=== PATIENT | male | born 1965 | race American Indian/Alaskan Native ===

== ENCOUNTER 2017-03-30 04:45 | Emergency (ER) | payer MEDICAID ==
[2017-03-30 04:54] VITALS: BP 135/90; PULSE 52; RESP 14; TEMP 98; O2SAT 97
--- NOTE | 2017-03-30 05:02 | C.PDOC ---
History Of Present Illness 52 yo male come in for evaluation of left hip pain gradually developed since last night " after was wearing low sitting jeans with belt that was around my hip. I was sitting in chair, had long discussion and at the end felt some deep pain over my Left hip that gradually worse over time". Otherwise, pt denies known direct trauma or injury, back pain, abd. pain, N/V, saddle anesthesia, incontinence, denies weakness, sensory or vascular deficits to Left leg. Ambulate to ED for evaluation with stable gait, not in any apparent distress. Time Seen by Provider: 03/30/17 04:54 History Per: Patient Onset/Duration Of Symptoms: Gradual Past Medical History Reviewed: Historical Data, Nursing Documentation, Vital Signs Vital Signs: Last Vital Signs Temp 98.0 F 03/30/17 04:54 Pulse 52 L 03/30/17 04:54 Resp 14 03/30/17 04:54 BP 135/90 03/30/17 04:54 Pulse Ox 97 03/30/17 05:07 Family History: States: No Known Family Hx - Social History Hx Tobacco Use: No Hx Alcohol Use: No Hx Substance Use: No - Immunization History Hx Tetanus Toxoid Vaccination: No Hx Influenza Vaccination: No Hx Pneumococcal Vaccination: No Review Of Systems Except As Marked, All Systems Reviewed And Found Negative. Constitutional: Negative for: Fever, Chills ENT: Negative for: Throat Pain Gastrointestinal: Negative for: Nausea, Vomiting, Abdominal Pain Genitourinary: Negative for: Incontinence Musculoskeletal: Positive for: Other (Left hip pain) Skin: Negative for: Rash, Bruising Neurological: Negative for: Weakness, Numbness Physical Exam - Physical Exam Appears: Well, Non-toxic, No Acute Distress Skin: Normal Color, Warm, No Ecchymosis Gastrointestinal/Abdominal: Soft, No Tenderness, No Distention, No Guarding Back: No CVA Tenderness, No Vertebral Tenderness Extremity: Normal ROM (LLE), Tenderness (mild tenderness overlying Left hip area , no ecchymoses, no palpable deformity, no edema or erythema. FAROM of Left hip , no neurovascular deficist distally to pain.), No Pedal Edema, Capillary Refill (less than 2sec to Left hip), No Deformity, No Swelling Neurological/Psych: Oriented x3, Normal Speech, Normal Motor, Normal Sensation, Normal Reflexes ED Course And Treatment O2 Sat by Pulse Oximetry: 97 - Other Rad Left hip and pelvis X-Ray: Interpreted by Me, Viewed By Me Interpretation: no acute fx or dislocation Progress Note: On re-eval, pt ambulatory in ED with stable gait, not in any apparent distress. Afebrile, hemodynamicaly stable. NOn-toxic. PulseOx 100% RA. ENT: no acute findings. Uvula midline. Abd: benign, (-) guarding, (-) rebound. LLE: exam c/w left hip contusion. No defomrity, no skin changes. FAROM , no neurovascular deficits. xray review and appears normal. Pt advised on course of ds. ref. to f/U with Ortho in 2-3 days for re-eavl. return if any new changes. Disposition Counseled Patient/Family Regarding: Studies Performed, Diagnosis, Need For Followup, Rx Given - Disposition Referrals: Jeyson Nguyen III, MD [Staff Provider] - Disposition: HOME/ ROUTINE Disposition Time: 06:07 Condition: STABLE Additional Instructions: Ice to area Avoid prolong walking Keep leg elevated Avoid low rise jeans Take medication as prescribed Follow up ith Orthopedist in 2 days for [id number]. Return to ED at any time if any worsening or new changes. Prescriptions: Ibuprofen [Motrin Tab] 600 mg PO Q6 #14 tab Instructions: Hip Bursitis (ED), Hip Pain (ED) - Clinical Impression Clinical Impression: Hip pain
--- NOTE | 2017-03-30 08:05 | RAD ---
PROCEDURE: HISTORY: pain COMPARISON: None TECHNIQUE: AP view of the pelvis and applicable frog leg views obtained. FINDINGS: No fracture or subluxation appreciated the right femoral head/neck morphology the decreased superolateral can cavity is dysmorphic - a femoral acetabular impingement/ adult type hip dysplasia with greater than normal uncovering of the right femoral head is suspect. Note is made patient's symptoms are left-sided. Bilateral superolateral hip joint space narrowing is present. Left superolateral femoral head neck osseous hypertrophy with bordering subchondral coalescence cystic change in geodes probable Right hemipelvic and perineal phleboliths are suggested Possible L5-S1 minimal facet osseous hypertrophy also present IMPRESSION: No fracture. Asymmetry in the hips as detailed above. Bilateral superolateral hip joint space narrowing consistent degenerative changes present. Left femoral head probable subchondral cysts and/or the oats. To further evaluate the marrow are consider MRI. Dysplastic appearing right hip
== END 2017-03-30 06:18 | disposition home or self-care (01) ==
LOC: C.ER 04:45
DX: M25.552 Pain in left hip (principal)

== ENCOUNTER 2017-07-11 06:12 | Emergency (ER) | payer SELFPAY ==
[2017-07-11 06:31] VITALS: RESP 16; O2SAT 98
--- NOTE | 2017-07-11 08:57 | C.PDOC ---
History Of Present Illness 52 yo male requesting Glenn testing. PT notes that his friend is positive and is concerned he has it. States he feels "great". no sore throat, fever, weakness, weight loss, lymphadenopathy. Pt notes he is asymptomatic. (Paz Mosley) History Per: Patient History/Exam Limitations: no limitations Time Seen by Provider: 07/11/17 07:18 Chief Complaint (Nursing): Medical Clearance Past Medical History Family History: States: Unknown Family Hx - Social History Hx Tobacco Use: No Hx Alcohol Use: No Hx Substance Use: No - Immunization History Hx Tetanus Toxoid Vaccination: No Hx Influenza Vaccination: No Hx Pneumococcal Vaccination: No Vital Signs: Last Vital Signs Temp 97.5 F L 07/11/17 08:57 Pulse 61 07/11/17 08:57 Resp 16 07/11/17 08:57 BP 130/77 07/11/17 08:57 Pulse Ox 98 07/11/17 08:58 Physical Exam - Physical Exam Appears: Well, Non-toxic, No Acute Distress Skin: Normal Color, Warm, Dry Head: Atraumatic, Normacephalic Eye(s): bilateral: Normal Inspection, EOMI Nose: Normal Oral Mucosa: Moist Throat: Normal, No Erythema, No Exudate, No Drooling Neck: Normal, Normal ROM, Supple Lymphatic: Normal Exam, No Axilla Node Tenderness Chest: Symmetrical Cardiovascular: Rhythm Regular Respiratory: Normal Breath Sounds Gastrointestinal/Abdominal: Normal Exam, Soft, No Tenderness Back: Normal Inspection Extremity: Normal ROM Neurological/Psych: Oriented x3, Normal Speech ED Course And Treatment O2 Sat by Pulse Oximetry: 98 Progress Note: Glenn spot negative. Disposition - Disposition Disposition Time: 08:57 - Disposition Disposition: HOME/ ROUTINE Condition: STABLE Additional Instructions: Follow up with your primary medical doctor or clinic in 2-5 days for further evaluation. Return to the emergency department at any time if symptoms persist or worsen. Forms: General Discharge Instructions, [facility] (Citizen Of [place]) - Clinical Impression Clinical Impression: Encounter for medical assessment
[2017-07-11 08:58] VITALS: BP 130/77; PULSE 61; TEMP 97.5
== END 2017-07-11 08:58 | disposition home or self-care (01) ==
LOC: C.ER 06:12
DX: Z04.8 Encounter for examination and observation for other specified reasons (principal)

== ENCOUNTER 2018-01-15 12:02 | Emergency (ER) | payer MEDICAID ==
[2018-01-15 12:11] VITALS: BMI 27.8
[2018-01-15 12:16] VITALS: BP 143/80; PULSE 56; RESP 18; TEMP 98.1; O2SAT 99
--- NOTE | 2018-01-15 13:04 | C.PDOC ---
History Of Present Illness 52 yo male w/o significant PMHx come in for evaluation of left sided lower back/ left flank pain gradually developed for past few days. Pt reports, " was playing basketball when jumped for ball and twisted by back. I felt pain right away but it subsided. Since yesterday, pain worsen". Pt admits, pain is localized over left lower back pain, non-radiating and worse with movement. Otherwise, pt denies known direct trauma or injury, fall, neck pain, abd. pain, V/D, UTI sx, saddle anesthesia, incontinence, denies weakness, sensory or vascular deficits to B/l LEs. Ambulate to ED for evaluation with stable gait. Time Seen by Provider: 01/15/18 12:17 Chief Complaint (Nursing): Back Pain History Per: Patient Onset/Duration Of Symptoms: Gradual Past Medical History Reviewed: Historical Data, Nursing Documentation, Vital Signs Vital Signs: Last Vital Signs Temp 98.1 F 01/15/18 12:14 Pulse 56 L 01/15/18 12:14 Resp 18 01/15/18 12:14 BP 143/80 01/15/18 12:14 Pulse Ox 99 01/15/18 12:14 - Medical History PMH: No Chronic Diseases Surgical History: No Surg Hx Family History: States: Unknown Family Hx - Social History Hx Tobacco Use: No Hx Alcohol Use: No Hx Substance Use: No - Immunization History Hx Tetanus Toxoid Vaccination: No Hx Influenza Vaccination: No Hx Pneumococcal Vaccination: No Review Of Systems Except As Marked, All Systems Reviewed And Found Negative. Constitutional: Negative for: Fever, Chills ENT: Negative for: Throat Pain Cardiovascular: Negative for: Chest Pain Respiratory: Negative for: Cough Gastrointestinal: Negative for: Nausea, Vomiting, Abdominal Pain, Diarrhea Genitourinary: Negative for: Dysuria, Frequency, Incontinence Musculoskeletal: Positive for: Back Pain. Negative for: Leg Pain Skin: Negative for: Rash Neurological: Negative for: Weakness, Numbness Physical Exam - Physical Exam Appears: Well, Non-toxic, No Acute Distress Skin: Normal Color, Warm, Dry, No Rash, No Ecchymosis Head: Normacephalic Eye(s): bilateral: PERRL Oral Mucosa: Moist Neck: No Midline Cervical Tenderness, No Step Off Deformity, Supple Gastrointestinal/Abdominal: Soft, No Tenderness, No Distention, No Guarding, No Rebound Back: No CVA Tenderness, No Vertebral Tenderness, Muscle Spasm (Left lumbar paraspinal), Paraspinal Tenderness (left sided lumbar paraspinal tenderness with mod muscle spasm. no midline tenderness, no palpable deformity, no skin changes.), Straight Leg Raising (Right leg (+)60, Left leg (+) 40) Extremity: Normal ROM (B/L LEs), No Pedal Edema, No Calf Tenderness, No Deformity, No Swelling Neurological/Psych: Oriented x3, Normal Speech, Normal Motor, Normal Sensation, Normal Reflexes ED Course And Treatment O2 Sat by Pulse Oximetry: 99 Pulse Ox Interpretation: Normal Progress Note: On re-eval, pt is not in any apparent distress. Afebrile, hemodynamicaly stable. Non-toxic, ambulatory in Ed with stable gait. neck: Supple, (-) midline tenderness. Abd: benign, (-) guardibng, (-) rebound. back : (+) exam c/w left lumbar paraspinal tenderness with muscle spasm, no midline tenderness, no palpable deformity. Neurologicaly intact. Pt advised. ref. to f/u with PMD in 1-2 days for re-eval. return if any new changes. Disposition Counseled Patient/Family Regarding: Diagnosis, Need For Followup, Rx Given - Disposition Referrals: Cristóbal Rodas DO [Staff Provider] - Disposition: HOME/ ROUTINE Disposition Time: 12:40 Condition: STABLE Additional Instructions: Light duty to lower back, avoid any physical activity for 1 week Take medication as prescribed [id number] up with PMD in 2-3 days for re-evaluation. Return to ED if any worsening or new changes. Prescriptions: Ibuprofen [Motrin Tab] 600 mg PO Q6 #14 tab Methocarbamol [Robaxin] 500 mg PO TID #14 tab traMADol [Ultram] 50 mg PO TID #7 tab Instructions: Lumbar Muscle Strain (DC) Forms: [facility] (Thai), Work Excuse - Clinical Impression Clinical Impression: Low back strain
== END 2018-01-15 13:25 | disposition home or self-care (01) ==
LOC: C.ER 12:02
DX: S39.012A Strain of muscle, fascia and tendon of lower back, initial encounter (principal); X50.9XXA Other and unspecified overexertion or strenuous movements or postures, initial encounter; Y93.67 Activity, basketball

== ENCOUNTER 2018-09-24 15:41 | Emergency (ER) | payer SELFPAY ==
[2018-09-24 15:41] VITALS: BMI 27.8
[2018-09-24 15:54] VITALS: BP 130/73; PULSE 55; RESP 18; TEMP 98; O2SAT 98
[2018-09-24] MEDS ORDERED: Lidocaine 5% Patch TD STA (16:14)
[2018-09-24] MEDS ORDERED: Lidocaine 5% Patch TD ONE (16:29)
--- NOTE | 2018-09-24 16:36 | C.PDOC ---
History Of Present Illness 53 y/o male presents to the ER complaining of right sided neck pain which has been present since yesterday. Patient states that the pain began after he abruptly turned his head. Patient reports that pain became worse when he woke up in the morning today.He notes that he has history of similar symptoms. Denies having headache, fever, and chills. Time Seen by Provider: 09/24/18 15:48 Chief Complaint (Nursing): Back Pain History Per: Patient History/Exam Limitations: no limitations Onset/Duration Of Symptoms: Days Current Symptoms Are (Timing): Still Present Severity: Moderate Past Medical History Reviewed: Historical Data, Nursing Documentation, Vital Signs Vital Signs: Last Vital Signs Temp 98.0 F 09/24/18 15:51 Pulse 55 L 09/24/18 15:51 Resp 18 09/24/18 15:51 BP 130/73 09/24/18 15:51 Pulse Ox 98 09/24/18 15:51 - Medical History PMH: No Chronic Diseases Other Surgeries: Hx of surgeries Family History: States: No Known Family Hx - Social History Hx Tobacco Use: No Hx Alcohol Use: No Hx Substance Use: Yes - Immunization History Hx Tetanus Toxoid Vaccination: No Hx Influenza Vaccination: No Hx Pneumococcal Vaccination: No Review Of Systems Except As Marked, All Systems Reviewed And Found Negative. Constitutional: Negative for: Fever, Chills Musculoskeletal: Positive for: Neck Pain Neurological: Negative for: Headache Physical Exam - Physical Exam Appears: Non-toxic, No Acute Distress Skin: Normal Color, Warm, Dry Head: Atraumatic, Normacephalic Eye(s): bilateral: Normal Inspection Nose: Normal Oral Mucosa: Moist Neck: No Midline Cervical Tenderness, Supple, Other (mild muscle spasm to right lateral neck) Chest: Symmetrical Cardiovascular: Rhythm Regular Respiratory: Normal Breath Sounds, No Rales, No Rhonchi, No Wheezing Extremity: Normal ROM Neurological/Psych: Oriented x3, Normal Speech, Normal Motor, Normal Sensation, Normal Reflexes ED Course And Treatment O2 Sat by Pulse Oximetry: 98 (RA) Pulse Ox Interpretation: Normal Progress Note: Pt was offered Toradol IM, Valium PO, and Lidoderm Patch. As per pt's request, pt was only treated with Lidoderm Patch and Tramadol. Pt has been discharged and instructed to follow up with PMD in 2-3 days. Disposition - Disposition Referrals: Cristóbal Rodas DO [Staff Provider] - Disposition: HOME/ ROUTINE Disposition Time: 16:33 Condition: STABLE Additional Instructions: Follow up with PMD within 2-3 days. Return to ED if feel worse. Prescriptions: Lidocaine 5% [Lidoderm] 1 patch TP DAILY #30 patch Ibuprofen [Motrin Tab] 600 mg PO Q8 #30 tab traMADol [Ultram] 50 mg PO Q6 #20 tab Instructions: Muscle Spasms (DC) Forms: [employer] (Chinese) - Clinical Impression Clinical Impression: Neck muscle spasm - PA / MOBILITY SPECIALIST / Resident Statement / has reviewed & agrees with the documentation as recorded. - Scribe Statement The provider has reviewed the documentation as recorded by the Melina Arriaga Provider Attestation All medical record entries made by the Piaibalec were at my direction and personally dictated by me. I have reviewed the chart and agree that the record accurately reflects my personal performance of the history, physical exam, medical decision making, and the department course for this patient. I have also personally directed, reviewed, and agree with the discharge instructions and disposition.
== END 2018-09-24 16:43 | disposition home or self-care (01) ==
LOC: C.ER 15:41
DX: M62.838 Other muscle spasm (principal)

== ENCOUNTER 2018-11-22 01:39 | Emergency (ER) | payer MEDICAID, OTHER ==
[2018-11-22 01:40] VITALS: BMI 27.8
[2018-11-22 01:51] VITALS: BP 125/73; PULSE 65; RESP 18; TEMP 98.6; O2SAT 97
--- NOTE | 2018-11-22 01:56 | C.PDOC ---
History Of Present Illness Patient presents with chest pain and left arm pain on and off for the past week, worse today. Still smokes a pack a day. Denies fever, chills, nausea, or vomiting. Time Seen by Provider: 11/22/18 01:55 Chief Complaint (Nursing): Chest Pain History Per: Patient History/Exam Limitations: no limitations Onset/Duration Of Symptoms: Days, Intermittent Episodes Current Symptoms Are (Timing): Still Present Severity: Moderate Pain Scale Rating Of: 4 Associated Symptoms: Other (Left arm pain) Modifying Factors: None Exacerbating Factors: None Alleviating Factors: None Recent travel outside of the [place]: No Additional History Per: Patient Past Medical History Reviewed: Historical Data, Nursing Documentation, Vital Signs Vital Signs: Last Vital Signs Temp 98.6 F 11/22/18 01:45 Pulse 65 11/22/18 01:45 Resp 18 11/22/18 01:45 BP 125/73 11/22/18 01:45 Pulse Ox 97 11/22/18 01:45 Family History: States: No Known Family Hx - Social History Hx Tobacco Use: No Hx Alcohol Use: No Hx Substance Use: Yes - Immunization History Hx Tetanus Toxoid Vaccination: No Hx Influenza Vaccination: No Hx Pneumococcal Vaccination: No Review Of Systems Constitutional: Negative for: Fever, Chills Cardiovascular: Positive for: Chest Pain. Negative for: Palpitations Respiratory: Negative for: Cough, Shortness of Breath Gastrointestinal: Negative for: Nausea, Vomiting Musculoskeletal: Positive for: Hand Pain. Negative for: Back Pain Neurological: Negative for: Weakness, Numbness Physical Exam - Physical Exam Appears: Non-toxic Skin: Warm, Dry Head: Normacephalic Oral Mucosa: Moist Neck: Trachea Midline, Supple Chest: Symmetrical, No Tenderness Cardiovascular: Rhythm Regular Respiratory: No Rales, No Rhonchi, No Wheezing Gastrointestinal/Abdominal: Soft, No Tenderness Back: Normal Inspection Extremity: Normal ROM Extremity: Bilateral: Atraumatic Neurological/Psych: Oriented x3 Gait: Steady ED Course And Treatment ECG: Interpreted By Me, Viewed By Me ECG Rhythm: Sinus Rhythm (60), Nonspecific Changes O2 Sat by Pulse Oximetry: 97 Pulse Ox Interpretation: Normal Progress Note: Spoke with patient at length but he refuses any blood work, states he will return if symptoms recur. Against Medical Advice - AMA Patient Left Against Medical Advice: The patient declines admission to the hospital and wishes to leave the Emergency Department. This action is against my medical advice. This decision was made with informed refusal. The patient was told that admission to the hospital is necessary. Explanation of the reasons why were discussed. The risks of leaving were explained to the patient and include, but are not limited to, worsening of known or currently unknown conditions, permanent dis ability and from undiagnosed or untreated conditions. The patient has the capacity to make this informed decision and understands my explanation of the current medical problem and risks of leaving. The patient voluntarily accepts these risks and signed an AMA form documenting our conversation. The patient was given the opportunity to ask questions and reconsider. The patient was encouraged to return to the Emergency Department at any time for further care. Disposition Counseled Patient/Family Regarding: Studies Performed, Need For Followup, Smoking Cessation - Disposition Referrals: [facility] [Outside] [facility] [Outside] Disposition: AGAINST MEDICAL ADVICE Disposition Time: 02:12 Condition: FAIR Instructions: Chest Pain (DC) Forms: [employer] (Maltese) - Clinical Impression Clinical Impression: Chest pain - Scribe Statement The provider has reviewed the documentation as recorded by the Scribalec Kaye All medical record entries made by the Scribe were at my direction and personally dictated by me. I have reviewed the chart and agree that the record accurately reflects my personal performance of the history, physical exam, medical decision making, and the department course for this patient. I have also personally directed, reviewed, and agree with the discharge instructions and disposition.
--- NOTE | 2018-11-23 16:43 | CARD ---
APPROVED REPORT Date of service: 11/22/2018 EKG Measurement Heart [id number] <Conclusion> Normal sinus rhythm Normal ECG
== END 2018-11-22 02:12 | disposition left against medical advice (07) ==
LOC: C.ER 01:39
DX: R07.9 Chest pain, unspecified (principal)

== ENCOUNTER 2018-12-17 05:24 | Emergency (ER) | payer MEDICAID, OTHER ==
[2018-12-17 05:24] VITALS: BMI 27.8
[2018-12-17 05:32] VITALS: BP 132/75; PULSE 58; RESP 18; TEMP 97.7; O2SAT 97
--- NOTE | 2018-12-17 05:53 | C.PDOC ---
History Of Present Illness patient c/o right sided neck pain upon waking up this morning. he states he slept at a friend's place and she had a very soft pillow which he believes then caused his neck to be stiff this morning. he states he had the same thing happen 3 months ago. he denies injury, fever, chills, nausea, vomiting or weakness. Time Seen by Provider: 12/17/18 05:36 Chief Complaint (Nursing): Back Pain History Per: Patient History/Exam Limitations: no limitations Onset/Duration Of Symptoms: Hrs (1) Current Symptoms Are (Timing): Still Present Quality Of Discomfort: Sharp, Stabbing Severity: Severe Previous Symptoms: Neck Pain. denies: Back Pain, Prior Injury, Prior Surgery Associated Symptoms: None Exacerbating Factor(s): Turning, Movement Past Medical History Vital Signs: Last Vital Signs Temp 97.7 F 12/17/18 05:31 Pulse 58 L 12/17/18 05:31 Resp 18 12/17/18 05:31 BP 132/75 12/17/18 05:31 Pulse Ox 97 12/17/18 05:31 - Medical History PMH: No Chronic Diseases Family History: States: Unknown Family Hx - Social History Hx Tobacco Use: No Hx Alcohol Use: No Hx Substance Use: Yes - Immunization History Hx Tetanus Toxoid Vaccination: No Hx Influenza Vaccination: No Hx Pneumococcal Vaccination: No Review Of Systems Constitutional: Negative for: Fever, Chills ENT: Negative for: Throat Pain Cardiovascular: Negative for: Chest Pain Respiratory: Negative for: Shortness of Breath Gastrointestinal: Negative for: Nausea, Vomiting Musculoskeletal: Positive for: Neck Pain Neurological: Negative for: Weakness, Numbness Physical Exam - Physical Exam Appears: Well, No Acute Distress Skin: Normal Color, Warm, No Jaundice Head: Atraumatic, Normacephalic Neck: Decreased ROM, No Midline Cervical Tenderness, Paracervical Tenderness, Other (pain with attempt to turn head to the right, mild ttp to right side of neck, no midline tenderness) Lymphatic: No Adenopathy (no cervical node enlargement) Chest: Symmetrical Respiratory: No Accessory Muscle Use Back: Normal Inspection, No CVA Tenderness, No Vertebral Tenderness Extremity: Normal ROM Neurological/Psych: Oriented x3, Normal Speech Gait: Steady ED Course And Treatment O2 Sat by Pulse Oximetry: 97 Medical Decision Making Medical Decision Making: this patient appears to have MSK neck pain without traumatic injury. he will be given pain medication and referred to ortho. Disposition Counseled Patient/Family Regarding: Diagnosis, Need For Followup, Rx Given - Disposition Referrals: Nasra Benson MD [Staff Provider] - [facility] [Outside] Disposition: HOME/ ROUTINE Disposition Time: 05:52 Condition: STABLE Prescriptions: Ibuprofen [Motrin Tab] 800 mg PO TID PRN #21 tab PRN Reason: Pain, Moderate (4-7) traMADol [Ultram] 50 mg PO TID PRN #15 tab PRN Reason: Pain, Severe (8-10) Instructions: Neck Pain Forms: [facility] ([employer]), General Discharge Instructions - Clinical Impression Clinical Impression: Neck muscle spasm
== END 2018-12-17 06:15 | disposition home or self-care (01) ==
LOC: C.ER 05:24
DX: M62.838 Other muscle spasm (principal)

== ENCOUNTER 2019-01-29 11:42 | Emergency (ER) | payer MEDICAID ==
[2019-01-29 11:42] VITALS: BMI 27.8
[2019-01-29 12:21] VITALS: BP 157/84; PULSE 59; RESP 18; TEMP 98.6; O2SAT 98
--- NOTE | 2019-01-29 13:06 | C.PDOC ---
History Of Present Illness 53-year-old male presents to the ED for evaluation of right-sided neck pain which began this morning. Patient believes his symptoms are caused by sleeping the wrong way on his sofa, and complains of neck pain and stiffness. Patient reports experiencing similar symptoms in the past and was given Tramadol, which relieves his pain. Patient describes his pain as non-radiating, sharp and rates it 7/10 in severity. Patient denies fever, chills, chest pain, shortness of breath, back pain, extremity numbness/weakness, or recent trauma/falls. Time Seen by Provider: 01/29/19 12:59 Chief Complaint (Nursing): Back Pain History Per: Patient History/Exam Limitations: no limitations Current Symptoms Are (Timing): Still Present Quality Of Discomfort: "Pain" Pain Scale Rating Of: 7 Previous Symptoms: Back Pain Associated Symptoms: denies: Incontinence, New Weakness, New Numbness Additional History Per: Patient Past Medical History Reviewed: Historical Data, Nursing Documentation, Vital Signs Vital Signs: Last Vital Signs Temp 98.6 F 01/29/19 12:10 Pulse 59 L 01/29/19 12:10 Resp 18 01/29/19 12:10 BP 157/84 H 01/29/19 12:10 Pulse Ox 98 01/29/19 12:10 Primary Care Provider: Cristóbal Rodas - Medical History PMH: No Chronic Diseases Surgical History: No Surg Hx Family History: States: Unknown Family Hx - Social History Hx Tobacco Use: No Hx Alcohol Use: No Hx Substance Use: Yes - Immunization History Hx Tetanus Toxoid Vaccination: No Hx Influenza Vaccination: No Hx Pneumococcal Vaccination: No Review Of Systems Constitutional: Negative for: Fever, Chills Cardiovascular: Negative for: Chest Pain Respiratory: Negative for: Shortness of Breath Musculoskeletal: Positive for: Neck Pain (right-sided, atraumatic ). Negative for: Back Pain Neurological: Negative for: Weakness, Numbness Physical Exam - Physical Exam Appears: Non-toxic, No Acute Distress Skin: Normal Color, Warm, Dry Head: Atraumatic, Normacephalic Eye(s): bilateral: Normal Inspection Nose: No Discharge Oral Mucosa: Moist Tongue: Normal Appearing Lips: Normal Appearing Throat: No Erythema, No Exudate Neck: Decreased ROM (secondary to pain ), Trachea Midline, Supple, Other (tenderness to palpation of right side of neck. no ecchymosis, edema, or erythema ) Chest: Symmetrical, No Deformity, No Tenderness Cardiovascular: Rhythm Regular, No Murmur Respiratory: Normal Breath Sounds, No Rales, No Rhonchi, No Wheezing Extremity: Capillary Refill (less than 2 seconds ) Pulses: Left Carotid: Normal, Right Carotid: Normal Neurological/Psych: Oriented x3, Normal Speech, Normal Cognition, Normal Motor, Normal Sensation Gait: Steady ED Course And Treatment O2 Sat by Pulse Oximetry: 98 (on RA) Pulse Ox Interpretation: Normal Medical Decision Making Medical Decision Making: Impression: 53-year-old with right-sided neck pain Plan: * Flexeril PO * reassess and disposition Progress: Flexeril PO given Symptoms improved Stable for discharge Disposition Counseled Patient/Family Regarding: Diagnosis, Need For Followup, Rx Given - Disposition Referrals: Cristóbal Rodas DO [Staff Provider] - Disposition: HOME/ ROUTINE Disposition Time: 13:20 Condition: IMPROVED Additional Instructions: Continue Meds as prescribed Rest and Ice Follow up with PMD in 1-2 days Return to the ED if symptoms worsen Prescriptions: Cyclobenzaprine [Flexeril] 10 mg PO TID PRN #15 tab PRN Reason: Muscle Spasm Naproxen [Naprosyn] 500 mg PO BID #30 tablet Instructions: Muscle Spasms (DC), Torticollis (DC) Forms: [facility] [facility] ([place]) - Clinical Impression Clinical Impression: Neck pain, Torticollis - 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 - Scribe Statement The provider has reviewed the documentation as recorded by the Scribe (Kiesha Bal) All medical record entries made by the Scribe were at my direction and personally dictated by me. I have reviewed the chart and agree that the record accurately reflects my personal performance of the history, physical exam, med ical decision making, and the department course for this patient. I have also personally directed, reviewed, and agree with the discharge instructions and disposition.
== END 2019-01-29 13:15 | disposition home or self-care (01) ==
LOC: C.ER 11:42
DX: M54.2 Cervicalgia (principal); M43.6 Torticollis